=== PATIENT | female | born 1950 | race Caucasian/White ===

== ENCOUNTER 2022-05-22 13:00 | Outpatient (CLI) | payer MEDICARE, BC | END 2022-05-22 13:01 | disposition home or self-care (01) | LOC: CSHWCC 13:00 | PROVIDERS: ATTEND Preventive Medicine Undersea and Hyperbaric Medicine | DX: R60.0 Localized edema (principal) ==

== ENCOUNTER 2023-04-21 12:49 | Outpatient (CLI) | payer MEDICARE, BC | END 2023-04-21 12:50 | disposition home or self-care (01) | LOC: CSHCT 12:49 | PROVIDERS: ATTEND Physician Assistant | DX: M25.562 Pain in left knee (principal); M89.8X6 Other specified disorders of bone, lower leg; M25.462 Effusion, left knee; M17.12 Unilateral primary osteoarthritis, left knee ==

== ENCOUNTER 2023-11-05 09:10 | Outpatient (CLI) | payer MEDICARE | END 2023-11-05 09:11 | disposition home or self-care (01) | LOC: CSHWCC 09:10 | PROVIDERS: ATTEND Nurse Practitioner Family | DX: I87.312 Chronic venous hypertension (idiopathic) with ulcer of left lower extremity (principal); L97.322 Non-pressure chronic ulcer of left ankle with fat layer exposed; I73.9 Peripheral vascular disease, unspecified; I50.22 Chronic systolic (congestive) heart failure; F03.90 Unspecified dementia, unspecified severity, without behavioral disturbance, psychotic disturbance, mood disturbance, and anxiety | CPT/HCPCS: 11042; G0463; 99214 ==

== ENCOUNTER 2024-03-04 09:06 | Outpatient (CLI) | payer MEDICARE | END 2024-03-04 09:07 | disposition home or self-care (01) | LOC: CSHWCC 09:06 | PROVIDERS: ATTEND Nurse Practitioner Family | DX: I87.312 Chronic venous hypertension (idiopathic) with ulcer of left lower extremity (principal); L97.322 Non-pressure chronic ulcer of left ankle with fat layer exposed; I73.9 Peripheral vascular disease, unspecified; F03.90 Unspecified dementia, unspecified severity, without behavioral disturbance, psychotic disturbance, mood disturbance, and anxiety; I50.22 Chronic systolic (congestive) heart failure | CPT/HCPCS: 11042; G0463; 99213 ==

== ENCOUNTER 2024-06-08 12:52 | Outpatient (CLI) | payer MEDICARE | END 2024-06-08 12:53 | disposition home or self-care (01) | LOC: CSHMAMMO 12:52 | PROVIDERS: ATTEND Family Medicine Sports Medicine | DX: Z12.31 Encounter for screening mammogram for malignant neoplasm of breast (principal); Z80.3 Family history of malignant neoplasm of breast; Z85.42 Personal history of malignant neoplasm of other parts of uterus | CPT/HCPCS: 77063; 77067 ==

== ENCOUNTER 2024-08-20 19:11 | Emergency (ER) | payer MEDICARE ==
[2024-08-20 20:26] LABS: #Basophils 0.04 10x3/uL (0.0-0.2); #Eosinophils 0.16 10x3/uL (0.0-0.5); #Monocytes 0.44 10x3/uL (0.0-1.1); %Basophils 0.5 % (0.0-2.0); %Eosinophils 1.9 % (0.0-6.0); %Monocytes 5.3 % (0.0-10.0); %Neutrophils 73.9 % (40.0-75.0); Hematocrit 41.3 % (34.9-44.5); Hemoglobin 13.5 g/dL (12.0-15.5); Mean Corpuscular HGB CONC 32.7 g/dL (32.0-36.0); Mean Corpuscular Hemoglobin 29.6 pg (27.0-33.0); Mean Corpuscular Volume 90.6 fL (81.6-98.3); Mean Platelet Volume 9.8 fL (7.4-10.4); Platelet Count 217 10x3/uL (150-450); RBC Distribution Width 13.3 % (11.5-14.5); Red Blood Cell (RBC) Count 4.56 10x6/uL (3.90-5.03); White Blood Cell (WBC) Count 8.26 10x3/uL (3.5-10.5)
[2024-08-20 20:37] LABS: INR-International Normal Ratio 1.1; PTT 27.8 sec (22.0-33.0); Prothrombin Time 11.4 sec (9.5-12.1)
== END 2024-08-20 20:43 | disposition home or self-care (01) ==
LOC: CSHERS 19:11
DX: S00.03XA Contusion of scalp, initial encounter (principal); I10 Essential (primary) hypertension; W19.XXXA Unspecified fall, initial encounter
CPT/HCPCS: 36415; 70450; 85025; 85610; 85730

== ENCOUNTER 2025-03-08 10:36 | Outpatient (CLI) | payer MEDICARE | END 2025-03-08 10:37 | disposition home or self-care (01) | LOC: CSHWCC 10:36 | PROVIDERS: ATTEND Nurse Practitioner Family | DX: I87.313 Chronic venous hypertension (idiopathic) with ulcer of bilateral lower extremity (principal); L97.211 Non-pressure chronic ulcer of right calf limited to breakdown of skin; L97.929 Non-pressure chronic ulcer of unspecified part of left lower leg with unspecified severity; I73.9 Peripheral vascular disease, unspecified; I50.22 Chronic systolic (congestive) heart failure; F03.90 Unspecified dementia, unspecified severity, without behavioral disturbance, psychotic disturbance, mood disturbance, and anxiety | CPT/HCPCS: 11042 ==

== ENCOUNTER 2025-03-15 15:54 | Outpatient (CLI) | payer MEDICARE | END 2025-03-15 15:55 | disposition home or self-care (01) | LOC: CSHWCC 15:54 | PROVIDERS: ATTEND Nurse Practitioner Family | DX: I87.312 Chronic venous hypertension (idiopathic) with ulcer of left lower extremity (principal); L97.211 Non-pressure chronic ulcer of right calf limited to breakdown of skin; I73.9 Peripheral vascular disease, unspecified; I50.22 Chronic systolic (congestive) heart failure; F03.90 Unspecified dementia, unspecified severity, without behavioral disturbance, psychotic disturbance, mood disturbance, and anxiety | CPT/HCPCS: 11042; 99213; G0463 ==

== ENCOUNTER 2025-03-21 10:04 | Outpatient (CLI) | payer MEDICARE | END 2025-03-21 10:05 | disposition home or self-care (01) | LOC: CSHWCC 10:04 | PROVIDERS: ATTEND Nurse Practitioner Family | DX: I87.312 Chronic venous hypertension (idiopathic) with ulcer of left lower extremity (principal); L97.211 Non-pressure chronic ulcer of right calf limited to breakdown of skin; I73.9 Peripheral vascular disease, unspecified; I50.22 Chronic systolic (congestive) heart failure; L08.9 Local infection of the skin and subcutaneous tissue, unspecified; F03.90 Unspecified dementia, unspecified severity, without behavioral disturbance, psychotic disturbance, mood disturbance, and anxiety | CPT/HCPCS: 11042 ==

== ENCOUNTER 2025-03-29 12:42 | Outpatient (CLI) | payer MEDICARE | END 2025-03-29 12:43 | disposition home or self-care (01) | LOC: CSHWCC 12:42 | PROVIDERS: ATTEND Nurse Practitioner Family | DX: I87.312 Chronic venous hypertension (idiopathic) with ulcer of left lower extremity (principal); L97.211 Non-pressure chronic ulcer of right calf limited to breakdown of skin; I73.9 Peripheral vascular disease, unspecified; I50.22 Chronic systolic (congestive) heart failure; F03.90 Unspecified dementia, unspecified severity, without behavioral disturbance, psychotic disturbance, mood disturbance, and anxiety | CPT/HCPCS: 11042 ==

== ENCOUNTER 2025-04-05 13:45 | Outpatient (CLI) | payer MEDICARE | END 2025-04-05 13:46 | disposition home or self-care (01) | LOC: CSHWCC 13:45 | PROVIDERS: ATTEND Nurse Practitioner Family | DX: I87.312 Chronic venous hypertension (idiopathic) with ulcer of left lower extremity (principal); L97.211 Non-pressure chronic ulcer of right calf limited to breakdown of skin; I73.9 Peripheral vascular disease, unspecified; I50.22 Chronic systolic (congestive) heart failure; F03.90 Unspecified dementia, unspecified severity, without behavioral disturbance, psychotic disturbance, mood disturbance, and anxiety | CPT/HCPCS: 11042 ==

== ENCOUNTER 2025-04-14 09:54 | Outpatient (CLI) | payer MEDICARE | END 2025-04-14 09:55 | disposition home or self-care (01) | LOC: CSHWCC 09:54 | PROVIDERS: ATTEND Nurse Practitioner Family | DX: I87.312 Chronic venous hypertension (idiopathic) with ulcer of left lower extremity (principal); L97.211 Non-pressure chronic ulcer of right calf limited to breakdown of skin; I73.9 Peripheral vascular disease, unspecified; I50.22 Chronic systolic (congestive) heart failure; F03.90 Unspecified dementia, unspecified severity, without behavioral disturbance, psychotic disturbance, mood disturbance, and anxiety | CPT/HCPCS: 99213; G0463 ==

== ENCOUNTER 2025-06-17 12:58 | Outpatient (CLI) | payer MEDICARE | END 2025-06-17 12:59 | disposition home or self-care (01) | LOC: CSHMAMMO 12:58 | PROVIDERS: ATTEND Family Medicine Sports Medicine | DX: Z12.31 Encounter for screening mammogram for malignant neoplasm of breast (principal); Z80.3 Family history of malignant neoplasm of breast; Z85.42 Personal history of malignant neoplasm of other parts of uterus | CPT/HCPCS: 77063; 77067 ==

== ENCOUNTER 2025-08-02 10:31 | Emergency (ER) | payer MEDICARE ==
[2025-08-02 12:30] LABS: #Basophils 0.03 10x3/uL (0.0-0.2); #Eosinophils 0.13 10x3/uL (0.0-0.5); #Monocytes 0.41 10x3/uL (0.0-1.1); #Neutrophils 3.46 10x3/uL (1.5-8.4); %Basophils 0.5 % (0.0-2.0); %Eosinophils 2.3 % (0.0-6.0); %Lymphocytes 27.7 % (18.0-47.0); %Monocytes 7.3 % (0.0-10.0); %Neutrophils 62.0 % (40.0-75.0); Hematocrit 35.8 % (34.9-44.5); Hemoglobin 11.6 g/dL (12.0-15.5); Mean Corpuscular Hemoglobin 29.6 pg (27.0-33.0); Mean Corpuscular Volume 91.3 fL (81.6-98.3); Platelet Count 197 10x3/uL (150-450); Red Blood Cell (RBC) Count 3.92 10x6/uL (3.90-5.03); White Blood Cell (WBC) Count 5.59 10x3/uL (3.5-10.5)
[2025-08-02 12:45] LABS: ALT (SGPT) 14 U/L (Less than 34); AST (SGOT) 17 U/L (11-34); Albumin 3.3 g/dL (3.1-4.5); Alkaline Phosphatase 33 U/L (40-110); Anion Gap 9 mmol/L (10-20); BUN (Urea Nitrogen) 17 mg/dL (9.8-20.1); Bilirubin, Total 0.5 mg/dL (0.3-1.2); Calc. Creatinine Clearance 0 mL/min (70-130); Calcium 8.9 mg/dL (7.8-10.44); Carbon Dioxide 29 mmol/L (23-31); Chloride 108 mmol/L (98-107); Globulin 2.4 g/dL (2.4-3.5); Glucose 92 mg/dL (83-110); Potassium 4.2 mmol/L (3.5-5.1); Sodium 142 mmol/L (136-145)
== END 2025-08-02 15:15 | disposition home or self-care (01) ==
LOC: CSHERS 10:31
DX: L03.115 Cellulitis of right lower limb (principal); L03.116 Cellulitis of left lower limb; I10 Essential (primary) hypertension; I25.10 Atherosclerotic heart disease of native coronary artery without angina pectoris; Z95.5 Presence of coronary angioplasty implant and graft; R60.0 Localized edema
CPT/HCPCS: 36415; 80053; 83605; 83880; 85025; 93970